=== PATIENT | female | born 1950 | race Caucasian/White ===

== ENCOUNTER → 2018-05-09 | Outpatient (CLI) | payer OTHER ==
[2018-05-09 10:38] LABS: BASOPHILS 0.5 % (0.0-2.0); EOSINOPHILS 3.3 % (0.0-3.0); HEMATOCRIT 43.8 % (37.0-47.0); LYMPHOCYTES 32.9 % (24.0-44.0); MCH 26.6 pg (26.0-34.0); MCV 83.1 fL (80.0-100.0); MONOCYTES 7.6 % (1.0-8.0); PLATELET COUNT 345 thou/uL (150-400); POLYS 55.7 % (36.0-66.0); RBC 5.27 mil/uL (4.20-5.00); RDW 14.2 % (10.5-14.5); WBC 5.4 thou/uL (4.0-11.0)
[2018-05-09 10:58] LABS: ALBUMIN 3.5 g/dL (3.4-5.0); CALCIUM 9.8 mg/dL (8.5-10.1); POTASSIUM 4.7 mmol/L (3.5-5.1); TOTAL BILIRUBIN 0.3 mg/dL (<0.1-1.0); TOTAL PROTEIN 7.3 g/dL (6.4-8.2)
--- NOTE | 2018-05-09 16:38 | EKG ---
[address] [address] ELECTROCARDIOGRAM REPORT Name: TRAY DANIELS Room #: REG [facility]#: [id number] Admission: 05/09/18 Attend Phys: Andrew Gunn MD Discharge: Date of : 48 Report #: [id number] THIS REPORT FOR: //name// [facility] Test Date: 2018-05-09 Test Time: 10:50:48 Pat Name: TRAY DANIELS Department: Room: Gender: F Instructor Creeler: John GUTHRIE : 1950 Requested By: Andrew Gunn Order Number: [id number] MD: Dario Bauer Measurements Intervals [place] Rate: 37 P: 73 MT: 154 QRS: 51 QRSD: 92 T: 81 QT: 516 QTc: 405 Interpretive Statements Sinus bradycardia No previous ECG available for comparison Electronically Signed On 05-09-2018 16:38:19 LIQUEFACTION PLANT OPERATOR by Dario Bauer [email or web address] <ELECTRONICALLY SIGNED> By: Dario Bauer MD 05/09/18 1638 1050 1050 MD KISHORE Mooney
== END ==
LOC: CV 10:02
PROVIDERS: Otolaryngology Plastic Surgery within the Head & Neck
DX: K44.9 Diaphragmatic hernia without obstruction or gangrene (principal); K21.9 Gastro-esophageal reflux disease without esophagitis; K22.5 Diverticulum of esophagus, acquired; R13.19 Other dysphagia; K08.109 Complete loss of teeth, unspecified cause, unspecified class

== ENCOUNTER → 2018-05-15 | Outpatient (CLI) | payer OTHER ==
[~2018-05-15] MED LIST: BUSPIRONE HCL10 MG PO; FINASTERIDE5 MG PO; HAIR, SKIN & N1 EAC3 PO; IMMUNE COMPLEX PO; PROBIOTIC1 EAC3 PO; STOOL SOFTENER100 MG PO; SYNTHROID50 MCG PO; VITAMIN D2000 UNIT PO; ZANTAC 150MG T150 M1 PO
--- NOTE | 2018-05-15 15:51 | 2DMMODE ---
[facility] [place] [address] 2 D/M-MODE ECHOCARDIOGRAM Name: FRANCESTRAYHAIM ZAIDI Room #: REG [facility]#: [id number] Admission: 05/15/18 Attend Phys: Dario Bauer Discharge: Date of : 48 Date of Service: 05/15/18 1551 Report #: [id number] THIS REPORT FOR: //name// APPROVED REPORT Study performed: 05/15/2018 15:03:23 EXAM: Comprehensive 2D, Doppler, and color-flow Echocardiogram Patient Location: Out-Patient Status: routine BSA: 1.55 HR: 50 bpm BP: 138/86 mmHg Rhythm: Bradycardia Other Information Study Quality: Good/low window Indications Bradycardia, Pre-Op. 2D Dimensions RVDd: 38.48 mm IVSd: 9.29 (7-11mm) LVOT Diam: 19.82 (18-24mm) LVDd: 44.90 mm PWd: 7.79 (7-11mm) LVDs: 31.51 (25-40mm) Aortic Root: 28.56 mm Volumes Left Atrial Volume (Systole) Single Plane 4CH: 38.86 mL Single Plane 2CH: 41.83 mL LA ESV Index: 29.00 mL/m2 Aortic Valve AoV Peak Luigi.: 1.11 m/s AO Peak Gr.: 4.97 mmHg LVOT Max P.71 mmHg LVOT Max V: 0.96 m/s BHAVYA Vmax: 2.67 cm2 Mitral Valve E/A Ratio: 1.4 MV Decel. Time: 189.53 ms MV E Max Luigi.: 0.82 m/s MV A Luigi.: 0.57 m/s [facility] [address] [address] 2 D/M-MODE ECHOCARDIOGRAM Name: JESSICADARIENMarkLEYDATRAY DEJUAN [id number] Admission: 05/15/18 Attend Phys: Dario Bauer Discharge: Date of : 48 Date of Service: 05/15/18 1551 Report #: [id number] MV PHT: 54.96 ms Pulmonary Valve PV Peak Luigi.: 0.96 m/s PV Peak Gr.: 3.72 mmHg Pulmonary Vein P Vein S: 0.61 m/s P Vein A: 0.32 m/s P Vein D: 0.54 m/s P Vein A Dur.: 115.3 msec P Vein S/D Ratio: 1.13 Tricuspid Valve TR Peak Luigi.: 2.58 m/s RAP Estimate: 5.00 mmHg TR Peak Gr.: 26.61 mmHg PA Pressure: 32.00 mmHg Left Ventricle The left ventricle is normal size. There is normal left ventricular wall thickness. Left ventricular systolic function is normal. LVEF is 55-60%. The left ventricular diastolic function is normal. Right Ventricle The right ventricle is normal size. The right ventricular systolic function is normal. Atria The left atrium size is normal. The right atrium size is normal. Aortic Valve The Aortic valve is mildly sclerotic. No aortic regurgitation is present. There is no aortic valvular stenosis. Mitral Valve The mitral valve is normal in structure. Mild mitral regurgitation. No evidence of mitral valve stenosis. Tricuspid Valve The tricuspid valve is normal in structure. Trace to mild tricuspid regurgitation. Estimated PAP is 32mmHg. Pulmonic Valve Pulmonic valve is not well visualized. Mild pulmonic regurgitation. [facility] [address] [place] [address] 2 D/M-MODE ECHOCARDIOGRAM Name: TRAY DANIELS [facility] Room #: OSMAR Patrick#: [id number] Admission: 05/15/18 Attend Phys: Dario Bauer Discharge: Date of : 48 Date of Service: 05/15/18 1551 Report #: [id number] Great Vessels The aortic root is normal in size. Ascending aorta is not well visualized. IVC is normal in size and collapses >50% with inspiration. Pericardium There is no pericardial effusion. <Conclusion> The left ventricle is normal size. LVEF is 55-60%. The Aortic valve is mildly sclerotic. The mitral valve is normal in structure. Mild mitral regurgitation. The tricuspid valve is normal in structure. Trace to mild tricuspid regurgitation. Estimated PAP is 32mmHg. Pulmonic valve is not well visualized. Mild pulmonic regurgitation. There is no pericardial effusion. <ELECTRONICALLY SIGNED> By: Dusty Dunn MD 05/15/18 1551 155 155 Dusty Dunn MD /INF
== END ==
LOC: CV 07:35
DX: Z01.818 Encounter for other preprocedural examination (principal); I34.0 Nonrheumatic mitral (valve) insufficiency; I37.1 Nonrheumatic pulmonary valve insufficiency; I35.8 Other nonrheumatic aortic valve disorders

== ENCOUNTER 2018-05-17 05:12 | Day surgery (SDC) | payer OTHER ==
[~2018-05-17] VITALS: Ht 154.9 cm; Wt 57.6 kg
[2018-05-17 12:57] VITALS: BP 189/65
[2018-05-17 19:20] VITALS: BP 14/62
[2018-05-18] VITALS (7 sets, daily range): BP systolic 124–127; BP diastolic 49–53
--- NOTE | 2018-05-18 04:58 | NUR ---
PT RESTING IN BED WITH HE EYES OPEN AT THE START OF SHIFT.C/O PAIN IN HER THROAT,MANAGED WITH PO MED CRUSHED IN APPLESAUCE.MD C/O INSOMNIA,PHYSICIAN NOTIFIED,NEW ORDER NOTED AND CARRIED OUT.IVF AND PO ABX ADMINISTERED ORDERED.PT CONT ON CLEAR LIQUIDS,TOLERATING WELL.SCD'S TO NICK LOWER EXT.PT ABLE TO MAKE HER NEEDS KNOWN.CALL LIGHT WITHIN REACH.
[2018-05-18] MEDS ORDERED: NORCO 7.5-3251 EACH PO (10:43)
[2018-05-18] MEDS ORDERED: ONDANSETRON HCL4 M1 IV PUSH (10:43)
[2018-05-18] MEDS ORDERED: PROMS25 WY RECTAL (10:43)
--- NOTE | 2018-05-18 10:59 | O ---
[facility] [place] [address] OPERATIVE REPORT Name: TRAY DANIELS Room #: 432-P [facility] M.R.#: [id number] Admission: 05/17/18 Attend Phys: Andrew Gunn MD Discharge: Date of : 48 Report #: [id number] THIS REPORT FOR: //name// CC: [facility] physician/PCP Bo Bain MD DATE OF SERVICE: 05/17/2018 SURGEON: Andrew Gunn MD PREOPERATIVE DIAGNOSES: 1. Zenker's diverticulum. 2. Cervical dysphagia. POSTOPERATIVE DIAGNOSES: 1. Zenker's diverticulum. 2. Cervical dysphagia. OPERATION PERFORMED: 1. Direct microlaryngoscopy with endoscopic excision of Zenker's diverticulum. 2. Rigid esophagoscopy. 3. Cricopharyngeal myotomy. INDICATIONS: The patient is a 67-year-old female presenting with dysphagia. She was found to have on workup of a large Zenker's diverticulum, trapping food. She has been seen by conservation biology professor, Dr. Bain in light of the above. She was recommended to proceed with endoscopic excision of Zenker's diverticulum. PROCEDURE: The patient was brought to the operating room and placed supine on the operating table. After adequate general anesthesia was achieved via endotracheal intubation, she was turned 90 degrees. A shoulder roll was placed and neck was extended. She was prepped and draped for surgery. The procedure began with rigid esophagoscopy utilizing a Quizens rigid esophagoscope. Examination was made of the esophagus. The Zenker's diverticulum was easily seen, full of food debris, posterior to the esophageal lumen with a very hypertrophied cricopharyngeus. The esophagoscope was then removed and a Weerda laryngoscope was introduced. Posterior to the cricoid, the hypopharynx was then expanded, so that the both the esophageal lumen and the sac could be taken, video print was taken to document the sac and a lumen finder was put down the esophagus and video print taken to document. The food debris was then removed with forceps from the Zenker's sac. There was undigested food present. After this was done, using an [employer] Endopath CAROLYNN stapler with a blue load, the anvil was placed down the esophagus with the load firing on the cricopharyngeus. The [address] [address] OPERATIVE REPORT Name: TRAY DANIELSOINETTE Room #: 432-P [facility] M.R.#: [id number] Admission: 05/17/18 Attend Phys: Andrew Gunn MD Discharge: Date of : 48 Report #: [id number] stapler was then fired. A few minutes was held until the edema was relieved and then a line of ellis were fired down each side of the cricopharyngeus resulting in a cricopharyngeal myotomy and following the Zenker's sac open into the esophagus. Even though this was long load there, a second load was then placed and fired as this was a very large sac. This completely opened the Zenker's sac into the esophagus. Video prints were taken then to document. At this point, the Weerda scope was removed. The patient was returned to anesthesia, awake without difficulty, returned to recovery in good condition. Sponge and needle counts were correct. There were no complications. There was no blood loss. The patient will be watched until awake and stable. Presuming she does well, will be discharged to the floor with plans for discharge in the morning. Written and verbal discharge instructions and emergency precautions have been given to the family. DISCHARGE MEDICATIONS: Will include clindamycin 300 mg t.i.d. for 10 days, hydrocodone/acetaminophen 7.5/325 one to two q. 4-6 hours p.r.n., Phenergan suppository 25 mg 1 per rectum q. 4-6 hours p.r.n. DISCHARGE INSTRUCTIONS: She is instructed on light activity and soft diets. <ELECTRONICALLY SIGNED> By: Andrew Gunn MD 05/18/18 1059 1403 1435 Andrew Gunn MD /nt
--- NOTE | 2018-05-18 12:18 | NUR ---
PT TO DISCHARGE TO HOME TODAY.DISCHARGE PAPERS GONE OVER WITH PATIENT SIGNED COPY IN CHART AND ORIGINALS TO PATIENT. RX'S GIVEN TO PATIENT. IV ACSESS DCD AND ALL BELONGINGS PACKED AND SENT WITH PATIENT PT W/O PAIN OR RESP DISTRESS AT DISCHARGE.
== END 2018-05-18 13:52 | disposition home or self-care (01) ==
LOC: OR → TBA 05:12 → 4E 05:12 → OR 05:12 → TBA 05:13 → OR 12:38 → 4E 16:55 → OR 05-18 13:52
DX: K22.5 Diverticulum of esophagus, acquired (principal); R13.19 Other dysphagia; F32.9 Major depressive disorder, single episode, unspecified; F41.9 Anxiety disorder, unspecified; Z87.891 Personal history of nicotine dependence; E03.9 Hypothyroidism, unspecified; K21.9 Gastro-esophageal reflux disease without esophagitis; Z98.890 Other specified postprocedural states; Z85.810 Personal history of malignant neoplasm of tongue
CPT/HCPCS: 10783; 50010; 50101; 50243; 50246; 62110; 62900; 70005

== ENCOUNTER → 2018-07-18 | Outpatient (CLI) | payer OTHER ==
[~2018-07-18] MED LIST changes: +NORCO 7.5-3251 EACH PO; +ONDANSETRON HCL4 M1 IV PUSH; +PROMS25 WY RECTAL
== END ==
LOC: ULTRA 09:00
DX: G45.9 Transient cerebral ischemic attack, unspecified (principal)

== ENCOUNTER 2018-08-24 20:59 | Emergency (ER) | payer OTHER ==
[~2018-08-24] VITALS: Ht 154.9 cm; Wt 59.0 kg
[2018-08-24 21:48] LABS: ABSOLUTE NEUTROPHILS 4.6 thou/uL (1.4-8.2); BASOPHILS 0.6 % (0.0-2.0); EOSINOPHILS 2.4 % (0.0-3.0); HEMATOCRIT 42.4 % (37.0-47.0); LYMPHOCYTES 27.9 % (24.0-44.0); MCV 81.7 fL (80.0-100.0); MONOCYTES 7.5 % (1.0-8.0); PLATELET COUNT 240 thou/uL (150-400); POLYS 61.6 % (36.0-66.0); RBC 5.18 mil/uL (4.20-5.00); RDW 14.6 % (10.5-14.5); WBC 7.5 thou/uL (4.0-11.0)
[2018-08-24 21:57] LABS: ANION GAP 10 mmol/L (7-16); BUN 23 mg/dL (7-18); CALCIUM 9.7 mg/dL (8.5-10.1); CHLORIDE 104 mmol/L (98-107); CO2 25 mmol/L (21-32); CREATININE 1.2 mg/dL (0.6-1.0); GLUCOSE 92 mg/dL (74-106); POTASSIUM 3.7 mmol/L (3.5-5.1); SODIUM 139 mmol/L (136-145)
[2018-08-24 22:05] LABS: ALBUMIN 3.7 g/dL (3.4-5.0); SGOT 18 U/L (15-37); SGPT 24 U/L (30-65); TOTAL BILIRUBIN 0.3 mg/dL (<0.1-1.0); TOTAL PROTEIN 7.5 g/dL (6.4-8.2); TROPONIN-I <0.06 ng/mL (<0.06)
[2018-08-25 01:19] VITALS: BP 168/68
--- NOTE | 2018-08-26 08:43 | EKG ---
[place] [address] [address] [facility] [place] [address] ELECTROCARDIOGRAM REPORT Name: TRAY DANIELS [facility] [id number] ������������������ Admission: 08/24/18 ������������������ Attend Phys: Discharge: 08/25/18 ������������������ Date of : 48 Report #: [id number] ����������������������������������������������������������������� [id number] THIS REPORT FOR: //name// [facility] ED Test Date: 2018-08-24 Test Time: 21:18:46 Pat Name: TRAY DANIELS Department: Room: Gender: F Refrigeration Lead: lalo : 1950 Requested By: Alanis Pierre Order Number: [id number] MD: Heraclio Marshall Measurements Intervals [place] Rate: 63 P: 73 MA: 188 QRS: -1 QRSD: 87 T: 74 QT: 419 QTc: 429 Interpretive Statements Sinus rhythm Normal tracing Compared to ECG 05/09/2018 10:50:48 Sinus bradycardia no longer present Electronically Signed On 08-26-2018 8:43:22 CDT by Heraclio Marshall [email or web address] ��������������������������������������������� <ELECTRONICALLY SIGNED> ���������������������������������������� By: Heraclio Marshall MD, [facility] ��������������������������������������������� 08/26/18 0843 17 17 Heraclio Marshall MD, [facility] /EPI
== END 2018-08-25 01:20 | disposition home or self-care (01) ==
LOC: ER 20:59
PROVIDERS: Student in an Organized Health Care Education/Training Program
DX: R00.2 Palpitations (principal); R91.1 Solitary pulmonary nodule; K21.9 Gastro-esophageal reflux disease without esophagitis; E03.9 Hypothyroidism, unspecified; F32.9 Major depressive disorder, single episode, unspecified; F41.9 Anxiety disorder, unspecified; Z87.891 Personal history of nicotine dependence; Z88.1 Allergy status to other antibiotic agents; Z88.6 Allergy status to analgesic agent; Z88.5 Allergy status to narcotic agent; Z98.890 Other specified postprocedural states; Z90.710 Acquired absence of both cervix and uterus; Z85.89 Personal history of malignant neoplasm of other organs and systems

== ENCOUNTER → 2018-08-26 | Outpatient (CLI) | payer OTHER ==
--- NOTE | 2018-08-26 09:57 | EXE ---
[facility] [place] [address] STRESS ECHOCARDIOGRAM Name: TRAY DANIELS Room #: REG [facility]#: [id number] ������������� Admission: 08/26/18 ������������� Attend Phys: Dario Bauer Discharge: ��� ������������� ��� Date of : 48 Date of Service: 08/26/18 0957 �� Report #: [id number] �������� ��������������������������������������������[id number] THIS REPORT FOR: //name// APPROVED REPORT Study performed: 08/26/2018 08:16:21 Exam: Stress Echocardiogram Indication: Bradycardia Patient Location: Out-Patient Stress Nurse: Alondra Lopez RN Status: routine Ht: 5 ft 1 in HR: 41 bpm BP: 184/92 mmHg Rhythm: NSR Medical History Medications: None Allergies: Listed on worksheet Procedure The patient underwent an Exercise Stress Test using the Vignesh Protocol. Blood pressure, heart rate, and EKG were monitored. An Echocardiogram was performed by military pay technician in four stages in quad fashion. At peak stress, four selected images were obtained and placed side by side with resting images for comparison. Stress Test Details Stress Test: Exercise stress testing was performed using a Vignesh protocol. HR Resting HR: 49 bpm Max Heart Rate (APMHR): 152 bpm Max HR Achieved: 133 bpm Target HR (85% APMHR): 129 bpm % of APMHR: 87 Recovery HR: 54 bpm HR response to stress: Normal HR response to stress BP Resting BP: 184/92 mmHg Max BP: 190/98 mmHg Recovery BP: 140/70 mmHg BP response to stress: Normal blood pressure response to stress. ECG [facility] [address] [place] [address] STRESS ECHOCARDIOGRAM Name: TRAY DANIELS Room #: REG [facility] Patrick#: [id number] ������������� Admission: 08/26/18 ������������� Attend Phys: Dario Bauer Discharge: ��� ������������� ��� Date of : 48 Date of Service: 08/26/18 0957 �� Report #: [id number] �������� ��������������������������������������������[id number] Resting ECG: Sinus Rhythm Stress ECG: Sinus Rhythm ST Change: Non-ischemic Recovery ECG: Sinus Rhythm Clinical Reason for Termination: Dyspnea, fatigue, leg pain, dizziness Stress Symptoms: Dizzy, short of breath Exercise duration: 6 min 45 sec Highest Stage Achieved: Stage 3: 3.4 mph at 14% grade. Exercise capacity: 9.10 METs Pre-Stress Echo The resting Echocardiogram showed normal left ventricular contractility with an estimated Ejection Fraction of about 55-60%. Normal wall motion in all segments on baseline images. Post-Stress Echo The stress Echocardiogram showed normal left ventricular contractility with an estimated Ejection Fraction of about 60-65%. Normal augmentation of wall motion in all segments on post stress images. Clinical No clinical or ECG evidence for ischemia. Conclusion Clinical Response: Non-ischemic Exercise Capacity: Average Stress ECG Response: Non-ischemic Stress Echo Images: Non-ischemic The left ventricle is normal in size and wall thickness in both the rest and stress images. <Conclusion> The left ventricle is normal in size and wall thickness in both the rest and stress images. ��������������������������������������������� <ELECTRONICALLY SIGNED> ���������������������������������������� By: Rubio Leblanc MD ��������������������������������������������� 08/26/18 0957 0957 Ruboi Leblanc MD /INF
== END ==
LOC: CV
DX: R00.1 Bradycardia, unspecified (principal); Z88.1 Allergy status to other antibiotic agents; Z88.8 Allergy status to other drugs, medicaments and biological substances

== ENCOUNTER 2018-09-10 21:44 | Emergency (ER) | payer OTHER ==
[~2018-09-10] VITALS: Ht 154.9 cm; Wt 56.7 kg
[2018-09-10 22:38] LABS: ABSOLUTE NEUTROPHILS 3.8 thou/uL (1.4-8.2); BASOPHILS 0.4 % (0.0-2.0); EOSINOPHILS 2.6 % (0.0-3.0); HEMATOCRIT 43.8 % (37.0-47.0); HEMOGLOBIN 14.6 gm/dL (12.0-15.0); LYMPHOCYTES 31.9 % (24.0-44.0); MCH 27.2 pg (26.0-34.0); MCHC 33.3 g/dL (28.0-37.0); MCV 81.9 fL (80.0-100.0); MONOCYTES 8.6 % (1.0-8.0); PLATELET COUNT 255 thou/uL (150-400); POLYS 56.5 % (36.0-66.0); RBC 5.35 mil/uL (4.20-5.00); RDW 14.5 % (10.5-14.5); WBC 6.7 thou/uL (4.0-11.0)
[2018-09-10 22:47] LABS: ANION GAP 9 mmol/L (7-16); BUN 10 mg/dL (7-18); CALCIUM 9.2 mg/dL (8.5-10.1); CHLORIDE 104 mmol/L (98-107); CO2 27 mmol/L (21-32); GLUCOSE 106 mg/dL (74-106); POTASSIUM 3.9 mmol/L (3.5-5.1); SODIUM 140 mmol/L (136-145)
[2018-09-10 22:51] LABS: ALBUMIN 3.8 g/dL (3.4-5.0); SGOT 18 U/L (15-37); SGPT 16 U/L (30-65); TOTAL BILIRUBIN 0.3 mg/dL (<0.1-1.0); TOTAL PROTEIN 7.6 g/dL (6.4-8.2); TROPONIN-I <0.06 ng/mL (<0.06)
[2018-09-10] MEDS ORDERED: BUSPIRONE HCL10 MG PO (23:03)
[2018-09-11 00:25] VITALS: BP 169/64
--- NOTE | 2018-09-11 09:37 | EKG ---
[address] [address] ELECTROCARDIOGRAM REPORT Name: TRAY DANIELS [facility] [id number] ������������������ Admission: 09/10/18 ������������������ Attend Phys: Discharge: 09/11/18 ������������������ Date of : 48 Report #: [id number] ����������������������������������������������������������������� [id number] THIS REPORT FOR: //name// [facility] ED Test Date: 2018-09-10 Test Time: 21:52:48 Pat Name: TRAY DANIELS Department: Room: Gender: F Pathology Manager: KKKIMBERVI : 1950 Requested By: Xavier Reese Order Number: [id number] MD: Rubio Leblanc Measurements Intervals [place] Rate: 59 P: 72 MD: 158 QRS: -3 QRSD: 90 T: 62 QT: 448 QTc: 444 Interpretive Statements Sinus rhythm Compared to ECG 08/24/2018 21:18:46 No significant changes Electronically Signed On 09-11-2018 9:37:27 CDT by Rubio Leblanc [email or web address] ��������������������������������������������� <ELECTRONICALLY SIGNED> ���������������������������������������� By: Rubio Leblanc MD ��������������������������������������������� 09/11/18 0937 215 [id number] Rubio Leblanc MD /SHAKIRA
== END 2018-09-11 00:26 | disposition home or self-care (01) ==
LOC: ER 21:44
PROVIDERS: Emergency Medicine
DX: R03.0 Elevated blood-pressure reading, without diagnosis of hypertension (principal); R51 Headache; K21.9 Gastro-esophageal reflux disease without esophagitis; F32.9 Major depressive disorder, single episode, unspecified; F41.9 Anxiety disorder, unspecified; E03.9 Hypothyroidism, unspecified; Z98.890 Other specified postprocedural states; Z90.710 Acquired absence of both cervix and uterus; Z87.891 Personal history of nicotine dependence; Z88.1 Allergy status to other antibiotic agents; Z88.8 Allergy status to other drugs, medicaments and biological substances

== ENCOUNTER → 2019-11-25 | Outpatient (CLI) | payer OTHER | LOC: SJCVC 10:37 | PROVIDERS: ATTEND Internal Medicine Cardiovascular Disease | DX: R00.1 Bradycardia, unspecified (principal); I10 Essential (primary) hypertension; Z79.899 Other long term (current) drug therapy; Z86.73 Personal history of transient ischemic attack (TIA), and cerebral infarction without residual deficits ==

== ENCOUNTER → 2020-04-21 | Outpatient (CLI) | payer OTHER, MEDICARE | LOC: RAD 09:59 | PROVIDERS: ATTEND Otolaryngology Plastic Surgery within the Head & Neck | DX: K21.9 Gastro-esophageal reflux disease without esophagitis (principal); K22.5 Diverticulum of esophagus, acquired; K44.9 Diaphragmatic hernia without obstruction or gangrene; K08.109 Complete loss of teeth, unspecified cause, unspecified class ==

== ENCOUNTER → 2020-05-03 | Outpatient (CLI) | payer OTHER ==
[~2020-05-03] MED LIST changes: +AVAPRO 150 MG150 M1 PO; +HAIR SKIN NAIL1 EACH PO; +NABUMETONE 500500 M2 PO; +NEURONTIN 300M300 M2 PO; +SUPER THERAVIT1 EACH PO; +SV FLAXSEED OI1 EACH PO; +VITAMIN D325 MC5 PO
== END ==
LOC: LAB 07:51
PROVIDERS: ATTEND Otolaryngology Plastic Surgery within the Head & Neck
DX: Z01.812 Encounter for preprocedural laboratory examination (principal); Z20.822 Contact with and (suspected) exposure to COVID-19

== ENCOUNTER → 2020-05-03 | Outpatient (CLI) | payer OTHER ==
[2020-05-03 12:35] LABS: HEMATOCRIT 39.6 % (37.0-47.0); HEMOGLOBIN 12.3 gm/dL (12.0-15.0); MCH 24.5 pg (26.0-34.0); MCV 79.1 fL (80.0-100.0); RDW 16.8 % (10.5-14.5); WBC 6.2 thou/uL (4.0-11.0)
[2020-05-03 12:50] LABS: ALBUMIN 3.6 g/dL (3.4-5.0); CALCIUM 10.1 mg/dL (8.5-10.1); CREATININE 1.1 mg/dL (0.6-1.0); POTASSIUM 4.9 mmol/L (3.5-5.1); TOTAL BILIRUBIN 0.4 mg/dL (0.2-1.0)
--- NOTE | 2020-05-03 14:28 | EKG ---
[address] [address] ELECTROCARDIOGRAM REPORT Name: TRAY DANIELS Room #: REG [facility]#: [id number] Admission: 05/03/20 Attend Phys: Ludwin Tim MD Discharge: Date of : 48 Report #: [id number] [facility] Test Date: 2020-05-03 Test Time: 12:36:13 Pat Name: TRAY DANIELS Department: Room: Gender: F Home Care Attendant: SBLUDIVINA : 1950 Requested By: Ludwin Tim Order Number: [id number] : Jim Neely Measurements Intervals [place] Rate: 49 P: 84 MT: 164 QRS: 48 QRSD: 89 T: 71 QT: 451 QTc: 408 Interpretive Statements Sinus bradycardia Compared to ECG 09/10/2018 21:52:48 Sinus rhythm no longer present Electronically Signed On 05-03-2020 14:28:23 [employer]O TRUCK DRIVER by Jim Neely [email or web address] <ELECTRONICALLY SIGNED> By: Jim Neely MD, [facility] 05/03/20 1428 1236 1236 Jim Neely MD, FACC /EPI
== END ==
LOC: CV 12:03
PROVIDERS: ATTEND Internal Medicine
DX: K22.5 Diverticulum of esophagus, acquired (principal); K08.109 Complete loss of teeth, unspecified cause, unspecified class; K44.9 Diaphragmatic hernia without obstruction or gangrene; K21.9 Gastro-esophageal reflux disease without esophagitis; R00.1 Bradycardia, unspecified

== ENCOUNTER 2020-05-07 11:44 | Day surgery (SDC) | payer OTHER ==
[~2020-05-07] VITALS: Ht 154.9 cm; Wt 56.7 kg
[2020-05-07 13:35] VITALS: BP 156/71
[2020-05-07] MEDS ORDERED: HYDROCODON-ACE1 EAC8 PO (15:03)
[2020-05-07] MEDS ORDERED: CLEOCIN HCL150 MG PO (15:03)
[2020-05-07 16:25] VITALS: BP 178/68
--- NOTE | 2020-05-07 17:09 | NUR ---
assumed care at 1630. pt is a&o x4. pt complains of pain and was given pain medication and benadyrl at ER according to hand off report. iv is intact and shows no signs of redness or swelling. 2L of 02 and tolerating well. scd hose are in place. pt denies itching. will continue to monitor.
[2020-05-07 19:49] VITALS: BP 147/60
--- NOTE | 2020-05-08 03:41 | NUR ---
PT WAAS NOT HAPPY WITH THE DINNER THAT SHE GOT,SHE REQUESTED TO HAVE SOMETHING DIFFERENT BUT UNFORTUNATELY,THE KIITCHEN WAS CLOSED AT THAT TIME.PT WAS OFFERED SOME JELLO,YOGURT AND BROTH WHICH SHE ACCEPTED AND ATE.UP TO THE TOILET WITH SBA.SCD IN PLACE TO HER BLE.PT SLEEPING ON HER BED AT THIS TIME.CALL LIGHT WITHIN REACH.
[2020-05-08 07:41] VITALS: BP 108/56
[2020-05-08 09:09] VITALS: BP 108/56
--- NOTE | 2020-05-08 09:52 | NUR ---
ASSUMED CARE OF THE PATIENT AT 0715, PATIENT ALERT AND ORIENTED X 4. UP WITH SBA. PATIENT WILL DISCHARGE TO HOME THIS AM. RIGHT FOREARM IV REMOVED PRIOR TO DISCHARGE. THIS RN WENT OVER ALL DISCHARGE PAPERWORK, AND WILL SEND ALL PERSONAL BELONGINGS WITH VICKY PATIENT.
--- NOTE | 2020-05-14 15:03 | O ---
[facility] [place] [address] OPERATIVE REPORT Name: TRAY DANIELS Room #: [facility] Darnell#: [id number] Admission: 05/07/20 Attend Phys: Andrew Gunn MD Discharge: 05/08/20 Date of : 48 Report #: [id number] THIS REPORT FOR: cc: Ludwin Tim MD, Richard K. MD Walton, Mark S. MD ~ DATE OF SERVICE: 05/07/2020 PREOPERATIVE DIAGNOSES: 1. Zenker's diverticulum, recurrent. 2. Cervical dysphagia. POSTOPERATIVE DIAGNOSES: 1. Zenker's diverticulum, recurrent. 2. Cervical dysphagia. OPERATION PERFORMED: 1. Direct microlaryngoscopy with endoscopic excision of Zenker's diverticulum. 2. Rigid esophagoscopy with esophageal dilatation. 3. Cricopharyngeal myotomy. HISTORY OF PRESENT ILLNESS: The patient is a 69-year-old female who presented originally in 2018 with cervical dysphagia. She was found on workup to have a large Zenker's diverticulum trapping food. She was seen by her sawdust machine operator, Dr. Bain, and then recommended excision of Zenker's diverticulum. The patient was brought to surgery on 05/17/2018. She underwent an endoscopic excision of Zenker's diverticulum at that time. The patient was symptom-free until just recently where she began to notice increased dysphagia. Followup barium swallow still confirmed barium swallow as expected, as this was not excised, but merely opened. However, there was some trapping of fluid at the bottom of the Zenker's. This did not seem to be trapped food and the patient has not had the trouble of regurgitating undigested food. I recommended that we re-examine this endoscopically and, if possible, perform a revision Zenker's diverticulectomy. I am reticent to proceed with an open procedure on this patient due to risk. DESCRIPTION OF PROCEDURE: The patient was brought to the operating room and placed supine on the operating table. After adequate general anesthesia was achieved via endotracheal intubation, she was turned 90 degrees. A shoulder roll was placed and the neck was extended. She was then prepped and draped for the procedure. Procedure began with rigid esophagoscopy utilizing a [employer] rigid esophagoscope. Examination was made of the cricopharyngeus region and esophagus. Zenker's diverticulum was seen. There was no undigested food [address] [address] OPERATIVE REPORT Name: TRAY DANIELS Room #: [facility] Gogo.Britton.#: [id number] Admission: 05/07/20 Attend Phys: Andrew Gunn MD Discharge: 05/08/20 Date of : 48 Report #: [id number]. Esophagoscope was passed down the esophagus to 40 cm, so that this could dilate. I did not appreciate any stricture or mass in the esophagus. The esophagoscope was then removed and a Weerda laryngoscope was introduced posterior to the cricoid. The hypopharynx was then expanded in 2 directions, anteroposterior and lateral, so the esophageal lumen and sac could be seen together. An esophageal dilator was then placed down the esophagus superiorly and a video print taken. Subsequently, this was re-introduced posteriorly, so that I could demonstrate the posterior sac. There was still about 1.5 cm to 2 cm of sac left that seemed larger than before. There was some fluid present, which was suctioned. There was no undigested food. Once this was documented, then an [employer] End[employer] ETH-Flex 45 articulating endoscopic linear cutter was introduced. This was reversed so that the anvil was in the esophagus and the ellis in the Zenker's diverticulum sac. A blue load was utilized. This was then closed for a few moments. This was held until the edema was relieved and then the stapler was fired. A line of ellis then were fired down each side of the cricopharyngeus remaining and then inferiorly resulting in a cricopharyngeal myotomy, following the Zenker's sac, opening it, marsupializing this into the esophagus. Inherent in this instrument, there is a 1 cm space inferiorly because it is unable to completely place ellis to the end of the anvil. A second load was then introduced and fired, a little more laterally to the right where the sac tended to digress. This opened this up better. The blue load was a 45 mm, standard six row 3.5 mm load. I was still unsatisfied with the bottom of this; and using a Harmonic endoscopic shear, the final division was undertaken at the bottom of the ellis. This did open this nicely into the esophagus. Prior to doing this, dilatation had been done to 28 mm with bougies. Video prints were then taken to document and the Weerda scope was then removed. A Dedo laryngoscope was then introduced. Complete examination was made of the rest of the hypopharynx and larynx. No other lesions were noted. There really was no blood loss. The patient will be watched overnight for monitoring with anticipation of discharge in the morning. Written and verbal discharge instructions and emergency precautions have been given to her . DISCHARGE MEDICATIONS: Will include clindamycin 300 mg t.i.d. for 10 days, Phenergan suppository 25 mg 1 per rectum q. 4-6 hours p.r.n., hydrocodone/acetaminophen 7.5/325 one to two q. 4-6 hours p.r.n. She is instructed on light activity and a soft diet. She has an appointment to see me back in the office in 1 week. <ELECTRONICALLY SIGNED> By: Andrew Gunn MD 05/14/20 1503 1448 1525 Andrew Gunn MD /nt
== END 2020-05-08 10:00 | disposition home or self-care (01) ==
LOC: OR 11:44 → TBA 11:45 → 4S 16:29 → OR 05-08 10:00
PROVIDERS: ATTEND Otolaryngology Plastic Surgery within the Head & Neck
DX: K22.5 Diverticulum of esophagus, acquired (principal); R13.19 Other dysphagia; K21.9 Gastro-esophageal reflux disease without esophagitis; K44.9 Diaphragmatic hernia without obstruction or gangrene; I10 Essential (primary) hypertension; F41.9 Anxiety disorder, unspecified; Z98.890 Other specified postprocedural states; Z79.899 Other long term (current) drug therapy; Z87.891 Personal history of nicotine dependence; Z98.42 Cataract extraction status, left eye; Z90.710 Acquired absence of both cervix and uterus; Z98.41 Cataract extraction status, right eye; Z88.8 Allergy status to other drugs, medicaments and biological substances; Z85.810 Personal history of malignant neoplasm of tongue
CPT/HCPCS: 50010; 50101; 50243; 50246; 50386; 51687; 53335; 57092; 62110; 62900; 70005